=== PATIENT | male | born 1995 ===

== ENCOUNTER 2016-12-11 08:32 | Emergency (ER) | payer SELFPAY | END 2016-12-11 09:25 | disposition home or self-care (01) | LOC: ERS 08:32 | DX: T65.891A Toxic effect of other specified substances, accidental (unintentional), initial encounter (principal); T25.522A Corrosion of first degree of left foot, initial encounter; L03.116 Cellulitis of left lower limb; X19.XXXA Contact with other heat and hot substances, initial encounter | CPT/HCPCS: 99283 ==